=== PATIENT | female | born 1970 | race Caucasian/White ===

== ENCOUNTER 2023-03-25 12:12 | Day surgery (SDC) | payer OTHER, SELFPAY ==
--- NOTE | 2023-03-25 13:15 | FL_ITS ---
The [address] [address] Patient Name: HILDA JUNIOR MRN: [id number] date: 1970 Sex: F Assigned Patient Location: [place] Current Patient Location: [place] Accession/Order Number: [id number] Exam Date: 03/25/2023 13:15 Report Date: 03/25/2023 14:08 At the request of: NON-STAFF PHYSICIAN Procedure: FL hip inj RT EXAMINATION: FL hip inj RT, FL guided needle placement HISTORY: Primary osteoarthritis of right hip M16.11 COMPARISON: No relevant comparison available. TECHNIQUE: An arthrogram was performed under fluoroscopic guidance using non-ionic contrast material in the usual sterile manner after obtaining informed consent. Standard level fluoroscopic mode of operation utilized. FINDINGS: JOINT: Right hip NEEDLE: 25 gauge, 3.5 spinal needle. MEDICATION: 2 mL buffered 1% lidocaine for subcutaneous anesthesia. 2 mL Omnipaque-300 iodinated contrast to visualize the joint space. 40 mg Kenalog, 2 mL 0.5% bupivacaine, and 3 mL Omnipaque 300 injected into the joint space. TECHNIQUE: Anterior approach with prior localization of the femoral artery. A single stick was successful in gaining access to the joint space. CLINICAL: No immediate change of joint pain post injection. COMPLICATIONS: None. OTHER: Negative. FL/FL hip inj RT IMPRESSION: 1. Technically successful right hip injection. Electronically authenticated by: CAROLINA SHEARER Date: 03/25/2023 14:08
--- NOTE | 2023-03-25 13:15 | FL_ITS ---
[address] [address] Patient Name: HILDA JUNIOR MRN: [id number] date: 1970 Sex: F Assigned Patient Location: [place] Current Patient Location: [place] Accession/Order Number: [id number] Exam Date: 03/25/2023 13:15 Report Date: 03/25/2023 14:08 At the request of: NON-STAFF PHYSICIAN Procedure: FL guided needle placement EXAMINATION: FL hip inj RT, FL guided needle placement HISTORY: Primary osteoarthritis of right hip M16.11 COMPARISON: No relevant comparison available. TECHNIQUE: An arthrogram was performed under fluoroscopic guidance using non-ionic contrast material in the usual sterile manner after obtaining informed consent. Standard level fluoroscopic mode of operation utilized. FINDINGS: JOINT: Right hip NEEDLE: 25 gauge, 3.5 spinal needle. MEDICATION: 2 mL buffered 1% lidocaine for subcutaneous anesthesia. 2 mL Omnipaque-300 iodinated contrast to visualize the joint space. 40 mg Kenalog, 2 mL 0.5% bupivacaine, and 3 mL Omnipaque 300 injected into the joint space. TECHNIQUE: Anterior approach with prior localization of the femoral artery. A single stick was successful in gaining access to the joint space. CLINICAL: No immediate change of joint pain post injection. COMPLICATIONS: None. OTHER: Negative. FL/FL guided needle placement IMPRESSION: 1. Technically successful right hip injection. Electronically authenticated by: CAROLINA SHEARER Date: 03/25/2023 14:08
[2023-03-25] MEDS: TRIAMCINOLONE ACETONIDE 40 MG/ML VIAL INJ (13:30)
[2023-03-25] MEDS: BUPIVACAINE HCL 0.5% PF 50 MG/10 ML VIAL 2 ML INJ (13:30)
[2023-03-25] MEDS: LIDOCAINE HCL 10 ML, SODIUM BICARBONATE 1 MEQ INJ (13:30)
== END 2023-03-25 13:50 ==
LOC: FL 03-26 08:21
PROVIDERS: Radiology Diagnostic Radiology; PCP Family Medicine
DX: M16.12 Unilateral primary osteoarthritis, left hip (principal)
CPT/HCPCS: 20610; 77002; Q9967